=== PATIENT | female | born 1995 | race African-American/Black ===

== ENCOUNTER 2020-07-06 13:09 | Emergency (ER) | payer MEDICAID ==
[~2020-07-06] VITALS: Ht 165.1 cm; Wt 50.0 kg
[2020-07-06] MEDS ORDERED: KETOROLAC 30MG/ML VIAL IM ONE (14:00)
[2020-07-06 14:57] VITALS: BP 128/76
== END 2020-07-06 14:57 | disposition home or self-care (01) ==
LOC: ER 13:09
DX: S20.219A Contusion of unspecified front wall of thorax, initial encounter (principal); S16.1XXA Strain of muscle, fascia and tendon at neck level, initial encounter; S39.012A Strain of muscle, fascia and tendon of lower back, initial encounter; V43.62XA Car passenger injured in collision with other type car in traffic accident, initial encounter; Y93.89 Activity, other specified; Y92.488 Other paved roadways as the place of occurrence of the external cause
CPT/HCPCS: 71045; 72070; 73030; 81025; 96372; 99284; J1885